=== PATIENT | male | born 1990 | race Caucasian/White ===

== ENCOUNTER 2018-02-19 07:26 | Emergency (ER) | payer BC, OTHER ==
[2018-02-19] MEDS ORDERED: Sodium Chloride 0.9% 10 ML Syringe FLUSH PRN (07:56)
[2018-02-19] MEDS ORDERED: Diphtheria,Pertussis(Acell),Tetanus Vaccine 0.5 ML SDV IM ONE (07:56)
[2018-02-19] MEDS ORDERED: Morphine 4 MG/ML Syringe IVPUSH ONE (07:56)
[2018-02-19] MEDS ORDERED: ceFAZolin 1 GM in Premix Bag 1 BAG IV ONE (07:57)
--- NOTE | 2018-02-19 08:21 | EDM.PDOC ---
ED HPI GENERAL MEDICAL PROBLEM - General Chief Complaint: Upper Extremity Injury/Pain Stated Complaint: SMACHED LEFT LITTLE FINGER Time Seen by Provider: 02/19/18 07:49 Source of Information: Reports: Patient, RN Notes Reviewed - History of Present Illness INITIAL COMMENTS - FREE TEXT/NARRATIVE: 27-year-old male comes in with injury to left ring finger that happened about 1 hour ago. 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 As a result he suffered avulsion injury of the nail of the small finger as his hand pulled out of the gait. He also has laceration injury of the ulnar aspect. Is having a lot of pain. No other injury to the remainder of the hand. Unsure of his last tetanus immunization, he knows it has been "a long time ago". Left Hand Pain Score (Numeric/FACES): 10 - Related Data Allergies Allergy/AdvReac Type Severity Reaction Status Date / Time No Known Allergies Allergy Verified 02/19/18 07:44 Home Meds: Home Meds . [No Known Home Meds] 02/19/18 [History] Past Medical History - Past Health History Medical/Surgical History: Denies Medical/Surgical History - Infectious Disease History Infectious Disease History: Reports: Chicken Pox Social & Family History - Tobacco Use Smoking Status *Q: Never Smoker Second Hand Smoke Exposure: No - Caffeine Use Caffeine Use: Reports: Soda - Recreational Drug Use Recreational Drug Use: No Review of Systems - Review of Systems Review Of Systems: See Below Constitutional: Reports: No Symptoms Eyes: Reports: No Symptoms Mouth/Throat: Reports: No Symptoms Respiratory: Denies: Shortness of Breath Cardiovascular: Reports: Syncope (States he got dizzy and almost passed out several times shortly after the incident). Denies: Chest Pain Musculoskeletal: Reports: Other (Severe pain distal left small finger) Neurological: Denies: Numbness (There is some numbness and tingling of the distal small finger) ED EXAM, GENERAL - Physical Exam Exam: See Below General Appearance: Alert, Moderate Distress Eye Exam: Bilateral Eye: PERRL Head: Atraumatic Respiratory/Chest: No Respiratory Distress Extremities: Other (There is total nail avulsion of the nail of the left distal small finger, laceration injury ulnar aspect, blood clots present, diffuse tenderness of the distal finger including the DIP joint but no deformity visible or present at that level. Small finger uninjured and nontender, remainder of hand uninjured and nontender.) Course - Vital Signs Last Recorded V/S: Last Vital Signs Temp 98.4 F 02/19/18 07:30 Pulse 66 02/19/18 10:45 Resp 16 02/19/18 10:45 BP 102/58 L 02/19/18 10:45 Pulse Ox 96 02/19/18 10:45 - Orders/Labs/Meds Orders: Active Orders 24 hr Category Date Time Status Peripheral IV Care [RC] . DIRECTED Care 02/19/18 07:56 Active Vaccines to be Administered [RC] PER UNIT ROUTINE Care 02/19/18 07:56 Active Fingers Fifth Digit Lt F4 [CR] Stat Exams 02/19/18 07:57 Taken Sodium Chloride 0.9% [Saline Flush] Med 02/19/18 07:56 Active 10 ml FLUSH ASDIRECTED PRN Peripheral IV Insertion Adult [OM.PC] Stat Oth 02/19/18 07:56 Ordered Medication Orders Sodium Chloride (Saline Flush) 10 ml FLUSH ASDIRECTED PRN PRN Reason: Keep Vein Open Last Admin: 02/19/18 08:05 Dose: 10 ml Meds: Medications Generic Name Dose Route Start Last Admin Trade Name Freq PRN Reason Stop Dose Admin Sodium Chloride 10 ml 02/19/18 07:56 02/19/18 08:05 Saline Flush FLUSH 10 ml ASDIRECTED PRN Administration Keep Vein Open Discontinued Medications Generic Name Dose Route Start Last Admin Trade Name Freq PRN Reason Stop Dose Admin Diphtheria/Tetanus/Acell Pertussis 0.5 ml 02/19/18 07:56 02/19/18 08:14 Adacel IM 02/19/18 07:57 0.5 ml .ONCE ONE Administration Cefazolin Sodium/Dextrose 1 gm 50 mls @ 100 mls/hr 02/19/18 07:57 02/19/18 08 :10 / Premix IV 02/19/18 08:26 100 mls/hr ONETIME ONE Administration Lidocaine HCl 50 ml 02/19/18 09:23 02/19/18 09:44 Xylocaine 1% INJECT 02/19/18 09:24 50 ml ONETIME ONE Administration Morphine Sulfate 4 mg 02/19/18 07:56 02/19/18 08:07 Morphine IVPUSH 02/19/18 07:57 4 mg ONETIME ONE Administration Departure - Departure Time of Disposition: 10:57 Disposition: Home, Self-Care 01 Condition: Fair Clinical Impression: Finger laceration Qualifiers: Encounter type: initial encounter Finger: little finger Damage to nail status: unspecified Foreign body presence: without foreign body Laterality: left Qualified Code(s): S61.217A - Laceration without foreign body of left little finger without damage to nail, initial encounter - Discharge Information Referrals: PCP,None [Primary Care Provider] - Forms: ED Department Discharge Additional Instructions: Leave tube gauze pressure dressing on for about 48 hours, then change dressing daily, keep finger protected from further injury as best you can and also try keep as dry and clean as best you can to reduce risk for infection, cephalexin antibiotic 500 mg 4 times daily for 1 week or until gone, keep finger and hand elevated as much as possible to help reduce swelling, Tylenol 3-4 times daily or hydrocodone if needed for severe pain, you may take one half tablet hydrocodone and a 500 mg Tylenol to have less narcotic side effect. Stitches out in about 10 days. There is no charge if you have those taken out at our [facility] medical clinic. Have rechecked any sign of infection. - My Orders Last 24 Hours: My Active Orders 02/19/18 07:56 Peripheral IV Care [RC] . DIRECTED Vaccines to be Administered [RC] PER UNIT ROUTINE Sodium Chloride 0.9% [Saline Flush] 10 ml FLUSH ASDIRECTED PRN Peripheral IV Insertion Adult [OM.PC] Stat 02/19/18 07:57 Fingers Fifth Digit Lt F4 [CR] Stat - Assessment/Plan Last 24 Hours: My Active Orders 02/19/18 07:56 Peripheral IV Care [RC] . DIRECTED Vaccines to be Administered [RC] PER UNIT ROUTINE Sodium Chloride 0.9% [Saline Flush] 10 ml FLUSH ASDIRECTED PRN Peripheral IV Insertion Adult [OM.PC] Stat 02/19/18 07:57 Fingers Fifth Digit Lt F4 [CR] Stat
[2018-02-19] MEDS ORDERED: Lidocaine 1% 50 ML MDV INJECT ONE (09:23)
--- NOTE | 2018-02-20 07:30 | CR ---
Left fifth finger: Four views centered to the left fifth finger were obtained. Comparison: No previous study. Soft tissue injury is identified distally. No fracture, dislocation or other bony abnormality is seen. No radiopaque foreign object is seen. Impression: 1. Soft tissue injury. No bony abnormality is identified. Diagnostic code #3
== END 2018-02-19 11:05 | disposition home or self-care (01) ==
LOC: JD.ED 07:26
DX: S61.217A Laceration without foreign body of left little finger without damage to nail, initial encounter (principal); W23.0XXA Caught, crushed, jammed, or pinched between moving objects, initial encounter
CPT/HCPCS: 12001; 73140; 90471; 90715; 96365; 96375; 99284; J0690; J2270; J7050; 13131; 99283-25